=== PATIENT | female | born 1955 | race Caucasian/White ===

== ENCOUNTER → 2019-09-21 | Outpatient (CLI) | payer OTHER ==
--- NOTE | 2019-09-21 13:11 | MM ---
Reason for exam: screening (asymptomatic). Last mammogram was performed 1 year ago. History: Patient is postmenopausal and had first child at age 31. Physical Findings: A clinical breast exam by your physician is recommended on an annual basis and results should be correlated with mammographic findings. MG Screening Mammo w CAD Bilateral CC and MLO view(s) were taken. Prior study comparison: September 06, 2018, bilateral MG screening mammo w CAD. May 08, 2015, bilateral MG screening mammo w CAD. There are scattered fibroglandular densities. New 4-5mm nodularity bilaterally. ASSESSMENT: Incomplete: need additional imaging evaluation, BI-RAD 0 RECOMMENDATION: Special view mammogram of both breasts. If lesion persists on supplemental views, image directed ultrasound is recommended. [facility] will attempt to contact patient to return for supplemental views and ultrasound if indicated.
== END | disposition home or self-care (01) ==
LOC: RADMAMWWP 10:49
PROVIDERS: ATTEND Pediatrics
DX: Z12.31 Encounter for screening mammogram for malignant neoplasm of breast (principal)
CPT/HCPCS: 77067

== ENCOUNTER → 2019-10-07 | Outpatient (CLI) | payer OTHER ==
--- NOTE | 2019-10-10 10:55 | MM ---
Reason for exam: additional evaluation requested from abnormal screening. Last mammogram was performed 1 month ago. History: Patient is postmenopausal and had first child at age 31. Physical Findings: Nurse Summary: 1cm nodule in the right breast at 2 o'clock (nurse mj). MG Work Up Mamm w CAD BILAT Bilateral LM and spot compression CC view(s) were taken. Prior study comparison: September 21, 2019, bilateral MG screening mammo w CAD. September 06, 2018, bilateral MG screening mammo w CAD. There are scattered fibroglandular densities. There is a 4mm mass in the right upper outer quadrant 7.5cm from nipple. and improved left 4mm focal asymmetry of the upper outer quadrant at middle depth 5cm from nipple. These results were verbally communicated with the patient and result sheet given to the patient on 10/07/19. ASSESSMENT: Incomplete: need additional imaging evaluation, BI-RAD 0 RECOMMENDATION: Ultrasound of both breasts. Right upper outer quadrant and palpable. Left upper outer quadrant and lower outer quadrant at palpable.
--- NOTE | 2019-10-10 10:58 | USB ---
Reason for exam: additional evaluation requested from abnormal screening. History: Patient is postmenopausal and had first child at age 31. US Breast Workup Limited [facility] Right limited breast ultrasound including focal area of concern, retroareolar and axilla demonstrates a 4 x 3 x 3mm oval, hypoechoic lesion at 9 o'clock, correlates with mammogram, possible deep cyst but no clear posterior enhancement. Left limited breast ultrasound including focal area of concern, retroareolar and axilla demonstrates a 3 x 3 x 4mm oval, cystic lesion at 2 o'clock, correlates with mammogram. These results were verbally communicated with the patient and result sheet given to the patient on 10/07/19. ASSESSMENT: Suspicious, BI-RAD 4 RECOMMENDATION: Ultrasound core biopsy of the right breast. Called Dr. Saeed's office with mammographic findings and has scheduled an appointment for the patient for 11/07/19 at 11:[address] Farmer. Biopsy schedule dfor 10/31/19 at 12:20. PRELIMINARY REPORT CALLED AND FAXED TO DR. FARMER ON 10/10/19.
== END | disposition home or self-care (01) ==
LOC: RADMAMWWP 10:20
PROVIDERS: ATTEND Pediatrics
DX: R92.8 Other abnormal and inconclusive findings on diagnostic imaging of breast (principal)
CPT/HCPCS: 77066

== ENCOUNTER → 2019-10-31 | Day surgery (SDC) | payer OTHER ==
[2019-10-31 13:07] VITALS: RESP 16; TEMP 98.1
[2019-10-31 14:12] VITALS: BP 110/72; PULSE 68
--- NOTE | 2019-10-31 14:12 | USB ---
EXAMINATION TYPE: US biopsy breast VAD RT, MG diagnostic mammo RT wo CAD DATE OF EXAM: 10/31/2019 CLINICAL HISTORY: R92.8 ABN MAMMO. TECHNIQUE: Ultrasound guided core biopsy of right breast. COMPARISON: Bilateral mammogram and ultrasound dated 10/07/2019 FINDINGS: The procedure of ultrasound guided core biopsy was explained to the patient. Benefits, alternatives, and risks were discussed. An informed consent was then obtained. 3 procedural timeout was performed. The patient was placed in supine positioning for imaging and for the procedure. The overlying skin was prepped and draped in usual sterile fashion. 10 cc of 1% lidocaine was used as anesthetic into the skin and subcutaneous tissue up to a 4 mm mass at the 9:00 position in the right breast. Under ultrasound guidance, a 12-gauge vacuum assisted biopsy gun device was used to obtain 4 core samples. Following this, a ribbon-shaped biopsy marker was left at the site of biopsy. Postprocedure mammogram demonstrates appropriate biopsy marker placement concordant with the mammographic mass. The patient tolerated the procedure well without any immediate complication. The patient was kept in the radiology department for short stay after the procedure and then discharged home in stable condition. IMPRESSION: Successful, uncomplicated ultrasound guided core biopsy of a 4 mm mass at the 9:00 position in the right breast, full pathology results to follow. 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 See Surgical Pathology Cancer Case Summary and comment. Recommendation Surgical consult of the right breast. JODY
== END ==
LOC: RADUSWWP 12:48
PROVIDERS: ATTEND Student in an Organized Health Care Education/Training Program
DX: C50.911 Malignant neoplasm of unspecified site of right female breast (principal); Z17.0 Estrogen receptor positive status [ER+]
CPT/HCPCS: 77065; 19083; A4648; J2001; 88305; 88341; 88342

== ENCOUNTER → 2020-07-11 | Outpatient (CLI) | payer OTHER ==
--- NOTE | 2020-07-12 13:34 | BD ---
EXAMINATION TYPE: Axial Bone Density DATE OF EXAM: 07/11/2020 COMPARISON: NONE CLINICAL HISTORY: Height: 5 FT 4 IN Weight: 157 FRAX RISK QUESTIONS: Alcohol (3 or more units per day): NO Family History (Parent hip fracture): NO Glucocorticoids (More than 3mos): NO (Ex: prednisone, prednisolone, methylprednisolone, dexamethasone, and hydrocortisone). History of Fracture in Adulthood: NO Secondary Osteoporosis: 1. Type 1 Diabetes: NO 2. Hyperthyroidism: NO 3. Menopause before 45: NO 4. Malnutrition: NO 5. Chronic liver disease: NO Rheumatoid Arthritis: NO Current Tobacco Use: NO RISK FACTORS HISTORY OF: Family History of Osteoporosis: UNSURE Active: YES Postmenopausal woman: AGE 50 MEDICATIONS: Additional Medications: HORMONE JANELLE Additional History: BREAST CANCER RADIATION 2019 LT WRIST CYST REMOVED EARLY EXAM MEASUREMENTS: Bone mineral densitometry was performed using the [employer] System. Bone mineral density as measured about the Lumbar spine is: ----- L1-L4(G/cm2): 0.895 T Score Values are as follows: ----- L2: -2.6 ----- L3: -1.6 ----- L4: -2.3 ----- L1-L4: -2.4 BASELINE Bone mineral density about the R hip (g/cm2): 0.757 Bone mineral density about the L hip (g/cm2): 0.714 T Score values are as follows: -----R Neck: -2.0 -----L Neck: -2.3 -----R Total: -1.9 -----L Total: -1.9 BASELINE IMPRESSION: Osteopenia NOTE: T-SCORE=SD OF THE YOUNG ADULT MEAN.
== END | disposition home or self-care (01) ==
LOC: RADBDWWP 14:49
PROVIDERS: ATTEND Internal Medicine Hematology & Oncology
DX: C50.919 Malignant neoplasm of unspecified site of unspecified female breast (principal); M85.80 Other specified disorders of bone density and structure, unspecified site; Z78.0 Asymptomatic menopausal state; Z91.048 Other nonmedicinal substance allergy status
CPT/HCPCS: 77080

== ENCOUNTER → 2021-05-22 | Outpatient (CLI) | payer MEDICARE, BC ==
--- NOTE | 2021-05-22 14:26 | XR ---
EXAMINATION TYPE: XR foot complete RT DATE OF EXAM: 05/22/2021 COMPARISON: NONE HISTORY: Pain TECHNIQUE: Three views are submitted. FINDINGS: The osseous structures are intact. There is no acute fracture or dislocation. Hypertrophic arthrop athy of the first MTP and first tarsal metatarsal joint. Diffuse osteopenia. Arthropathy of all DIP j oints. Calcaneal spur noted. Subluxation of the middle phalanx fourth digit relative to the proximal phalanx.. IMPRESSION: 1. Diffuse osteopenia and arthropathy. There is subluxation of the middle phalanx fourth digit relati ve balanced orally clinically. 2. Moderate-sized plantar calcaneal spur.
== END | disposition home or self-care (01) ==
LOC: RADXRMAIN 14:03
PROVIDERS: ATTEND Physician Assistant
DX: M77.31 Calcaneal spur, right foot (principal); M85.871 Other specified disorders of bone density and structure, right ankle and foot

== ENCOUNTER → 2022-11-20 | Outpatient (CLI) | payer MEDICARE, BC ==
--- NOTE | 2022-11-20 10:55 | CT ---
EXAMINATION TYPE: CT abdomen pelvis wo con DATE OF EXAM: 11/20/2022 COMPARISON: None HISTORY: bilateral flank pain, hematuria CT DLP: 371.4 mGycm Examination of the solid and hollow viscera is limited given the lack of contrast. FINDINGS: LUNG BASES: No evidence for nodule. No evidence for infiltrate. LIVER/GB: The gallbladder is unremarkable. No space-occupying hepatic lesion. PANCREAS: No pancreatic mass identified. No inflammatory process seen. SPLEEN: No evidence for splenomegaly. No intrasplenic lesions seen. ADRENALS: No adrenal nodules identified. No evidence for thickening. KIDNEYS: Hypoattenuating lesion upper pole right kidney could reflect a cyst although is not appropri ately characterized on 9 contrast imaging and measures 1.6 cm. No nephrolithiasis. No hydronephrosis. BOWEL: Appendix has a normal appearance. No evidence of bowel obstruction. No inflammatory process. Lymph nodes: No evidence for adenopathy greater than 1 cm. Abdominal aorta: Atheromatous changes seen. No evidence for aneurysm. Genital organs: No significant abnormality. Other: No significant abnormality. IMPRESSION: 1. No significant abnormality to account for the patient's symptoms.
== END | disposition home or self-care (01) ==
LOC: RADCTMAIN 10:25
PROVIDERS: ATTEND Pediatrics
DX: R31.9 Hematuria, unspecified (principal)
CPT/HCPCS: 74176

== ENCOUNTER → 2023-09-02 | Outpatient (CLI) | payer MEDICARE, BC ==
--- NOTE | 2023-09-02 15:22 | BD ---
EXAMINATION TYPE: Axial Bone Density DATE OF EXAM: 09/02/2023 CLINICAL HISTORY: 67 years old Female. ICD-10 CODE: C50.411 breast ca Height: 63 Weight: 155 FRAX RISK QUESTIONS: Secondary Osteoporosis: no RISK FACTORS HISTORY OF: Family History of Osteoporosis: no Active: yes Diet low in dairy products/other sources of calcium: no Postmenopausal woman: yes 50 Lost more than 2 inches in height since high school: yes Frequent falls: no Poor Health: no MEDICATIONS: Additional Medications: yes antineoplastic Additional History: breast cancer with radiation 2019 EXAM MEASUREMENTS: Bone mineral densitometry was performed using the [employer] System. Bone mineral density as measured about the Lumbar spine is: ----- L1-L4(G/cm2): 0.825 T Score Values are as follows: ----- L1: -2.9 ----- L2: -3.4 ----- L3: -2.9 ----- L4: -2.7 ----- L1-L4: -3.0 Z Score Values are as follows: ----- L1: -1.5 ----- L2: -2.0 ----- L3: -1.4 ----- L4: -1.3 ----- L1-L4: -1.5 Bone mineral density has: Decreased -7.8% since study of: 07/11/2020 Bone mineral density about the R hip (g/cm2): 0.737 Bone mineral density about the L hip (g/cm2): 0.730 T Score values are as follows: -----R Neck: -2.5 -----L Neck: -2.6 -----R Total: -2.1 -----L Total: -2.2 Z Score values are as follows: -----R Neck: -1.0 -----L Neck: -1.2 -----R Total: -0.9 -----L Total: -1.0 Bone mineral density has: Decreased -4.2% since study of: 07/11/2020 FRAX%s: The graph provided illustrates a 15.1% chance for a major osteoporotic fx and a 3.8% chance f or the hips probability for fx in 10 years time. IMPRESSION: Osteoporosis (T Score less than -2.5). There is increased fracture risk and therapy is usually indicated based on age. Re-Screen 1-2 years. NOTE: T-SCORE=SD OF THE YOUNG ADULT MEAN.
== END | disposition home or self-care (01) ==
LOC: RADBDWWP 14:13
PROVIDERS: ATTEND Internal Medicine Hematology & Oncology
DX: C50.411 Malignant neoplasm of upper-outer quadrant of right female breast (principal); G43.909 Migraine, unspecified, not intractable, without status migrainosus; M81.0 Age-related osteoporosis without current pathological fracture; Z78.0 Asymptomatic menopausal state; Z71.3 Dietary counseling and surveillance
CPT/HCPCS: 77080

== ENCOUNTER → 2023-09-14 | Outpatient (CLI) | payer MEDICARE, BC ==
--- NOTE | 2023-09-14 09:43 | US ---
EXAMINATION TYPE: US pelvic complete DATE OF EXAM: 09/14/2023 COMPARISON: CT CLINICAL INDICATION: Female, 67 years old with history of R10.2 PELVIC AND PERINEAL PAIN; Pt states p elvic pain TECHNIQUE: Transabdominal (TA). Transabdominal sonographic images of the pelvis were acquired. Date of LMP: Age 50 EXAM MEASUREMENTS: Uterus: 8.3 x 3.2 x 5.2 cm Endometrial Stripe: 1.5 cm Right Ovary: 2.0 x 1.4 x 1.3 cm Left Ovary: 2.1 x 1.1 x 1.9 cm 1. Uterus: Anteverted wnl 2. Endometrium: Measured multiple times, appeared thickened at 1.5 cm 3. Right Ovary: wnl 4. Left Ovary: wnl 5. Bilateral Adnexa: wnl 6. Posterior cul-de-sac: wnl IMPRESSION: Mildly thickened endometrium. Consider direct visualization if felt to be indicated.
== END | disposition home or self-care (01) ==
LOC: RADUSWWP 08:43
PROVIDERS: ATTEND Pediatrics
DX: R10.2 Pelvic and perineal pain (principal); R93.89 Abnormal findings on diagnostic imaging of other specified body structures
CPT/HCPCS: 76856

== ENCOUNTER → 2024-10-25 | Outpatient (CLI) | payer MEDICARE ==
--- NOTE | 2024-10-27 17:34 | MM ---
Reason for Exam: Screening (asymptomatic). Last screening mammogram was performed 12 month(s) ago. Patient History: Menarche at age 12. First Full-Term at age 31. Late child-bearing (after 30). Postmenopausal. Breast cancer, right, age 63. 10/31/2019, Malignant Core Biopsy on the right side. Prior Study Comparison: 06/04/2001 Screening Mammogram, [facility]. 07/27/2002 Screening Mammogram, [facility]. 11/19/2004 Screening Mammogram, [facility]. 01/28/2006 Bilateral Screening Mammogram, [facility]ED WITH [facility]. 02/22/2007 Bilateral Screening Mammogram, [facility]ED WITH [facility]. 06/06/2008 Bilateral Screening Mammogram, [facility]ED WITH [facility]. 08/10/2009 Bilateral Screening Mammogram, [facility]ED WITH [facility]. 05/08/2015 Bilateral Screening Mammogram, [facility]ED WITH [facility]. 09/06/2018 Bilateral Screening Mammogram, [facility]ED WITH [facility]. 09/21/2019 Bilateral Screening Mammogram, [facility]ED WITH [facility] 10/07/2019 Bilateral Diagnostic Mammogram, MERGED WITH [facility]. 10/07/2019 Bilateral Diagnostic Ultrasound, MERGED WITH [facility]. 10/31/2019 Right Diagnostic Mammogram, [facility]GED WITH [facility]. 10/10/2021 Bilateral MG 3D diag mammo wo cad [facility], [facility]. 10/14/2022 Bilateral MG 3D diag mammo w/cad [facility]. [facility] Tissue Density: There are scattered areas of fibroglandular density. Findings: Analyzed By CAD. The pattern is symmetrical. There is a stable-appearing distortion No suspicious groups of microcalcifications, spiculated or lobular masses, architectural distortion or other secondary signs of malignancy are mammographically apparent. Overall Assessment: Benign, BI-RAD 2 Management: Screening Mammogram of both breasts in 1 year. A negative mammogram report should not preclude additional follow up of suspicious palpable abnormalities. Patient should continue monthly self breast exam. A clinical breast exam by your physician is recommended on an annual basis and results should be correlated with mammographic findings. Note on Alice scores and lifetime risk: 1. A Alice score greater than 3% is considered moderate risk. If this is the case, consider specialist referral to assess eligibility for a risk reducing agent. 2. If overall lifetime risk for the development of breast cancer is 20% or higher, the patient may qualify for future screening with alternating mammogram and breast MRI. [facility], , 10/27/2024 5:31 PM. Electronically signed and approved by: Niko Crook D.O. Radiologis
== END | disposition home or self-care (01) ==
LOC: RADMAMWWP 09:29
PROVIDERS: ATTEND Internal Medicine Hematology & Oncology
DX: Z12.31 Encounter for screening mammogram for malignant neoplasm of breast (principal); Z78.0 Asymptomatic menopausal state; Z85.3 Personal history of malignant neoplasm of breast; R92.323 Mammographic fibroglandular density, bilateral breasts
CPT/HCPCS: 77063; 77067